=== PATIENT | male | born 1985 | race Caucasian/White ===

== ENCOUNTER → 2016-08-12 | Outpatient (CLI) | payer BC | LOC: MW.LAB 16:51 | PROVIDERS: ATTEND Internal Medicine Gastroenterology | DX: K50.00 Crohn's disease of small intestine without complications (principal) | CPT/HCPCS: 36415; 86480 ==

== ENCOUNTER 2018-06-10 18:07 | Emergency (ER) | payer BC ==
[2018-06-10] MEDS ORDERED: Sodium Chloride 0.9% 1,000 ML IV ONE (18:12)
--- NOTE | 2018-06-10 18:18 | EDM.PDOC ---
ED HPI GENERAL MEDICAL PROBLEM - General Chief Complaint: General Stated Complaint: CHEST PAIN AND HEADACHE Time Seen by Provider: 06/10/18 18:09 - History of Present Illness INITIAL COMMENTS - FREE TEXT/NARRATIVE: HISTORY AND PHYSICAL: History of present illness: Patient 32-year-old white male recently diagnosed with respiratory infection put on antibiotics and has had persistence tachycardia and pleuritic chest pain center by his private medical doctor for CT of his chest to rule out pulmonary embolus he's had no vomiting no diarrhea no other complaints. Review of systems: As per history of present illness and below otherwise all systems reviewed and negative. Past medical history: As per history of present illness and as reviewed below otherwise noncontributory. Surgical history: As per history of present illness and as reviewed below otherwise noncontributory. Social history: No reported history of drug or alcohol abuse. Family history: As per history of present illness and as reviewed below otherwise noncontributory. Physical exam: HEENT: Atraumatic, normocephalic, pupils reactive, negative for conjunctival pallor or scleral icterus, mucous membranes moist, throat clear, neck supple, nontender, trachea midline. Lungs: Clear to auscultation, breath sounds equal bilaterally, chest nontender. Heart: S1S2, regular, negative for clicks, rubs, or JVD. Abdomen: Soft, nondistended, nontender. Negative for masses or hepatosplenomegaly. Negative for costovertebral tenderness. Pelvis: Stable nontender. Genitourinary: Deferred. Rectal: Deferred. Extremities: Atraumatic, negative for cords or calf pain. Neurovascular unremarkable. Neuro: Awake, alert, oriented. Cranial nerves II through XII unremarkable. Cerebellum unremarkable. Motor and sensory unremarkable throughout. Exam nonfocal. Diagnostics: CBC CMP troponin PT/INR CTA chest EKG influenza screen Therapeutics: Saline 1 L bolus Impression: #1 atypical chest pain #2 influenza Definitive disposition and diagnosis as appropriate pending reevaluation and review of above. [] Chest Pain Score (Numeric/FACES): 5 - Related Data Allergies Allergy/AdvReac Type Severity Reaction Status Date / Time No Known Allergies Allergy Verified 06/10/18 18:19 Home Meds: Home Meds Adalimumab [Humira(Cf) Pen] 40 mg WEEKLY 06/10/18 [History] Citalopram [Citalopram HBr] 20 mg PO ASDIRECTED PRN 06/10/18 [History] Escitalopram [Lexapro] 1 tab DAILY 06/10/18 [History] Lisinopril [Prinivil] 10 mg PO DAILY 06/10/18 [History] Omeprazole 40 mg PO DAILY 06/10/18 [History] Ondansetron [Zofran ODT] 4 mg PO Q6H PRN 06/10/18 [History] ED ROS GENERAL - Review of Systems Review Of Systems: ROS reveals no pertinent complaints other than HPI. ED EXAM, GENERAL - Physical Exam Exam: See Below (See dictation) Course - Vital Signs Last Recorded V/S: Last Vital Signs Temp 37.1 C 06/10/18 18:11 Pulse 108 H 06/10/18 20:06 Resp 18 06/10/18 20:06 BP 150/96 H 06/10/18 20:06 Pulse Ox 96 06/10/18 20:06 - Orders/Labs/Meds Orders: Active Orders 24 hr Category Date Time Status Cardiac Monitoring [RC] . DIRECTED Care 06/10/18 18:12 Active EKG Documentation Completion [RC] STAT Care 06/10/18 18:12 Active Pulse Oximetry [RC] ASDIRECTED Care 06/10/18 18:12 Active Labs: Laboratory Tests 06/10/18 06/10/18 06/10/18 Range/Units 18:16 18:16 18:16 WBC 7.91 (4.0-11.0) K/uL RBC 4.74 (4.50-5.90) M/uL Hgb 14.7 (13.0-17.0) g/dL Hct 42.3 (38.0-50.0) % MCV 89.2 (80.0-98.0) fL MCH 31.0 (27.0-32.0) pg MCHC 34.8 (31.0-37.0) g/dL RDW Std Deviation 39.3 (28.0-62.0) fl RDW Coeff of Marcella 12 (11.0-15.0) % Plt Count 206 (150-400) K/uL MPV 9.70 (7.40-12.00) fL Neut % (Auto) 71.6 (48.0-80.0) % Lymph % (Auto) 12.9 L (16.0-40.0) % Williams % (Auto) 15.3 H (0.0-15.0) % Eos % (Auto) 0.1 (0.0-7.0) % Baso % (Auto) 0.1 (0.0-1.5) % Neut # (Auto) 5.7 (1.4-5.7) K/uL Lymph # (Auto) 1.0 (0.6-2.4) K/uL Williams # (Auto) 1.2 H (0.0-0.8) K/uL Eos # (Auto) 0.0 (0.0-0.7) K/uL Baso # (Auto) 0.0 (0.0-0.1) K/uL Nucleated RBC % 0.0 /100WBC Nucleated RBCs # 0 K/uL INR 1.00 Sodium 134 L (136-148) mmol/L Potassium 3.7 (3.5-5.1) mmol/L Chloride 100 (98-107) mmol/L Carbon Dioxide 26.7 (21.0-32.0) mmol/L BUN 11 (7.0-18.0) mg/dL Creatinine 1.2 (0.8-1.3) mg/dL Est Cr Clr Drug Dosing 89.56 mL/min Estimated GFR (MDRD) > 60.0 ml/min Glucose 100 (74-106) mg/dL Calcium 9.4 (8.5-10.1) mg/dL Total Bilirubin 0.3 (0.2-1.0) mg/dL AST 31 (15-37) IU/L ALT 62 (14-63) IU/L Alkaline Phosphatase 96 (46-116) U/L Troponin I < 0.050 (0.000-0.056) ng/mL Total Protein 8.0 (6.4-8.2) g/dL Albumin 3.9 (3.4-5.0) g/dL Globulin 4.1 H (2.6-4.0) g/dL Albumin/Globulin Ratio 1.0 (0.9-1.6) Meds: Medications Discontinued Medications Generic Name Dose Route Start Last Admin Trade Name Freq PRN Reason Stop Dose Admin Sodium Chloride 1,000 mls @ 999 mls/hr 06/10/18 18:12 06/10/18 18:26 Normal Saline IV 06/10/18 19:12 999 mls/hr STAT ONE Administration Iopamidol 70 ml 06/10/18 19:42 06/10/18 19:43 Isovue Multipack-370 (76%) IVPUSH 06/10/18 19:43 70 ml ONETIME STA Administration Ketorolac Tromethamine 30 mg 06/10/18 20:05 06/10/18 20:11 Toradol IVPUSH 06/10/18 20:06 30 mg ONETIME ONE Administration Lorazepam 1 mg 06/10/18 18:41 06/10/18 18:45 Ativan IVPUSH 06/10/18 18:42 1 mg ONETIME ONE Administration Departure - Departure Time of Disposition: 20:24 Disposition: Home, Self-Care 01 Condition: Good Clinical Impression: Influenza - Discharge Information Referrals: Nabil Lee MD [Primary Care Provider] - Forms: ED Department Discharge Additional Instructions: The following information is given to patients seen in the emergency department who are being discharged to home. This information is to outline your options for follow-up care. We provide all patients seen in our emergency department with a follow-up referral. The need for follow-up, as well as the timing and circumstances, are variable depending upon the specifics of your emergency department visit. If you don't have a primary care physician on staff, we will provide you with a referral. We always advise you to contact your personal physician following an emergency department visit to inform them of the circumstance of the visit and for follow-up with them and/or the need for any referrals to a consulting specialist. The emergency department will also refer you to a specialist when appropriate. This referral assures that you have the opportunity for followup care with a specialist. All of these measure are taken in an effort to provide you with optimal care, which includes your followup. Under all circumstances we always encourage you to contact your private physician who remains a resource for coordinating your care. When calling for followup care, please make the office aware that this follow-up is from your recent emergency room visit. If for any reason you are refused follow-up, please contact the [facility] emergency department at and asked to speak to the emergency department charge nurse. Infectious precautions as discussed push fluids Motrin/Tylenol as directed return as needed as discussed - My Orders Last 24 Hours: My Active Orders 06/10/18 18:12 Cardiac Monitoring [RC] . DIRECTED EKG Documentation Completion [RC] STAT Pulse Oximetry [RC] ASDIRECTED - Assessment/Plan Last 24 Hours: My Active Orders 06/10/18 18:12 Cardiac Monitoring [RC] . DIRECTED EKG Documentation Completion [RC] STAT Pulse Oximetry [RC] ASDIRECTED
[2018-06-10] MEDS ORDERED: LORazepam 2 MG/ML SDV IVPUSH ONE (18:41)
[2018-06-10 18:49] LABS: CHLORIDE,CL 100 mmol/L (98-107); SODIUM,NA 134 mmol/L (136-148)
[2018-06-10] MEDS ORDERED: Iopamidol 755 MG/ML 500 ML Multipack Bottle IVPUSH STA (19:42)
[2018-06-10] MEDS ORDERED: Ketorolac 30 MG/ML SDV IVPUSH ONE (20:05)
--- NOTE | 2018-06-10 20:13 | CT ---
INDICATION: Chest pain TECHNIQUE: CT chest pulmonary PE protocol acquired with 70 cc Isovue 370 IV contrast. COMPARISON: None FINDINGS: Cardiovascular structures: Normal vascular enhancement of the pulmonary arteries, no sign of pulmonary embolism. Cardiac size is upper limits of normal. No sign of aneurysm or dissection in the thoracic aorta. Mediastinum and ioana: No mass or adenopathy. Lungs: Clear. Pleura and pericardium: No effusions. Chest wall and axilla: Mild bilateral gynecomastia. Upper abdomen: Unremarkable. Bones: No significant findings. IMPRESSION: No pulmonary embolism, pneumonia, or acute intrathoracic abnormality. Mild bilateral gynecomastia. Please note that all CT scans at this facility use dose modulation, iterative reconstruction, and/or weight-based dosing when appropriate to reduce radiation dose to as low as reasonably achievable. Dictated by Angelika Burk MD @ Jun 10 2018 8:03PM Signed by Dr. Angelika Burk @ Jun 10 2018 8:11PM
== END 2018-06-10 20:35 | disposition home or self-care (01) ==
LOC: MW.ED 18:07
DX: J10.1 Influenza due to other identified influenza virus with other respiratory manifestations (principal); R07.89 Other chest pain; Z79.899 Other long term (current) drug therapy
CPT/HCPCS: 36415; 71275; 80053; 84484; 85025; 85610; 87804; 93005; 96374; 96375; 99285; J1885; J2060; J7040; Q9967; 99284